=== PATIENT | female | born 1975 ===

== ENCOUNTER 2022-03-13 08:58 | Observation (INO) ==
[2022-03-13 11:09] LABS: Basophils % 0.3 % (0.0-0.8); Eosinophils % 0.2 % (0.00-10.9); Hematocrit 39.7 VOL% (35.7-47.0); Hemoglobin 13.8 GM/DL (12.0-16.0); Immature Granulocytes % 0.4 %; Immature Granulocytes Absolute 0.05 #; Lymphocytes # 2.3 10*3/uL (1.4-4.0); Lymphocytes % 20.5 % (21.3-54.2); Mean Corpuscular HGB Conc 34.8 GM/DL (32-36); Mean Corpuscular Volume 93.4 FL (87-102); Monocytes # 0.7 10*3/uL (0.11-0.8); Monocytes % 5.9 % (1.7-12.7); Neutrophils % 72.7 % (38.7-73.9); Platelet Count 330 T/CUMM (130-400); Red Blood Count 4.25 MC/CUMM (3.8-5.5); Red Cell Distribution Width 11.8 % (9.3-17.3); White Blood Count 11.3 T/CUMM (4-12)
[2022-03-13] MEDS ORDERED: ONDANSETRON 4 MG/2 ML VIAL IV PRN (11:16)
[2022-03-13] MEDS ORDERED: DEXTROSE 10% 250 ML BAG IV PRN ×2 (11:16→14:48)
[2022-03-13] MEDS ORDERED: GLUCAGON 1 MG VIAL IM PRN ×2 (11:16→14:46)
[2022-03-13 11:28] LABS: Calcium 8.9 MG/DL (8.5-10.1); Osmolality,Calculated 285.3 MOS/KG (273-304); Potassium 3.7 MMOL/L (3.5-5.1)
[2022-03-13 11:53] LABS: Barbiturates Screen,Urine Negative (Negative); Benzodiazepines Screen,Urine Negative (Negative); Cannabinoid Screen,Urine Negative (Negative); Opiate Screen,Urine Positive (Negative); Phencyclidine Screen,Urine Negative (Negative)
[2022-03-13 12:04] LABS: INR 0.9; Partial Thromboplastin Time 22.2 SECS (23.7-32.9)
[2022-03-13] MEDS: INSULIN LISPRO 100 UNIT/ML SUBCUT SCH ×3 (13:17→20:15)
[2022-03-13] MEDS ORDERED: MAGNESIUM SULF RIDER 4 GM/100 ML PREMIX IV ONE (15:00)
[2022-03-13] MEDS ORDERED: LORazepam 1 MG TABLET PO PRN (17:18)
[2022-03-13] MEDS ORDERED: THIAMINE INJ 100 MG, FOLIC ACID INJ 1 MG, MAGNESIUM SULF INJ 2 GM, MULTIVITAMIN INJ 10 ... IV ONE (17:19)
[2022-03-13] MEDS: SIMVASTATIN 40 MG TABLET PO SCH (20:15)
[2022-03-14] MEDS: LEVOTHYROXINE 50 MCG TABLET PO SCH (05:09)
[2022-03-14 08:06] LABS: Basophils % 0.3 % (0.0-0.8); Eosinophils # 0.1 10*3/uL (0.0-0.87); Eosinophils % 1.4 % (0.00-10.9); Hematocrit 38.8 VOL% (35.7-47.0); Hemoglobin 13.4 GM/DL (12.0-16.0); Immature Granulocytes % 0.5 %; Immature Granulocytes Absolute 0.04 #; Lymphocytes # 2.3 10*3/uL (1.4-4.0); Lymphocytes % 29.5 % (21.3-54.2); Mean Corpuscular HGB Conc 34.5 GM/DL (32-36); Mean Corpuscular Volume 94.2 FL (87-102); Mean Platelet Volume 9.9 FL (9.6-12.0); Monocytes # 0.6 10*3/uL (0.11-0.8); Monocytes % 7.5 % (1.7-12.7); Neutrophils % 60.8 % (38.7-73.9); Platelet Count 307 T/CUMM (130-400); Red Blood Count 4.12 MC/CUMM (3.8-5.5); Red Cell Distribution Width 11.6 % (9.3-17.3); White Blood Count 7.9 T/CUMM (4-12)
[2022-03-14 08:23] LABS: Albumin 3.3 G/DL (3.4-5.0); Bilirubin,Total 0.7 MG/DL (0.20-1.00); Calcium 8.9 MG/DL (8.5-10.1); Osmolality,Calculated 279.7 MOS/KG (273-304); Potassium 4.1 MMOL/L (3.5-5.1)
[2022-03-14] MEDS: lisinopriL 2.5 MG TABLET PO SCH (08:29)
[2022-03-14] MEDS: PANTOPRAZOLE 40 MG TABLET PO SCH (08:29)
[2022-03-14] MEDS: INSULIN LISPRO 100 UNIT/ML SUBCUT SCH ×4 (08:29→20:38)
[2022-03-14] MEDS ORDERED: fentaNYL 100 MCG/2 ML VIAL ONE ×2 (09:38→09:50)
[2022-03-14] MEDS ORDERED: ceFAZolin 1,000 MG VIAL ONE (10:09)
[2022-03-14] MEDS ORDERED: LIDOCAINE 2% 5 ML VIAL ONE (10:19)
[2022-03-14] MEDS ORDERED: SEVOFLURANE 1 UNIT/15 MINUTE INH ONE ×2 (10:19→11:25)
[2022-03-14] MEDS ORDERED: ONDANSETRON 4 MG/2 ML VIAL ONE (10:19)
[2022-03-14] MEDS ORDERED: propofoL 200 MG/20 ML VIAL IV ONE (10:19)
[2022-03-14] MEDS ORDERED: ROCURONIUM 50 MG/5 ML VIAL IV ONE (10:19)
[2022-03-14] MEDS ORDERED: GLYCOPYRROLATE 0.4 MG/2 ML VIAL ONE (10:56)
[2022-03-14] MEDS ORDERED: NEOSTIGMINE 10 MG/10 ML VIAL ONE (10:57)
[2022-03-14] MEDS ORDERED: HYDROmorphone 1 MG/1 ML SYRINGE ONE (11:04)
[2022-03-14] MEDS ORDERED: LACTATED RINGERS 2,000 ML IV ONE (11:08)
[2022-03-14] MEDS ORDERED: GLUCAGON 1 MG VIAL IM PRN (16:26)
[2022-03-14] MEDS ORDERED: DEXTROSE 50% 25 GM/50 ML VIAL IV PRN (16:26)
[2022-03-14] MEDS: SIMVASTATIN 40 MG TABLET PO SCH (20:38)
[2022-03-15 04:32] LABS: Basophils % 0.2 % (0.0-0.8); Eosinophils # 0.1 10*3/uL (0.0-0.87); Eosinophils % 0.8 % (0.00-10.9); Hematocrit 40.2 VOL% (35.7-47.0); Hemoglobin 13.2 GM/DL (12.0-16.0); Immature Granulocytes % 0.6 %; Immature Granulocytes Absolute 0.06 #; Lymphocytes # 1.6 10*3/uL (1.4-4.0); Lymphocytes % 15.1 % (21.3-54.2); Mean Corpuscular HGB Conc 32.8 GM/DL (32-36); Mean Corpuscular Volume 97.1 FL (87-102); Mean Platelet Volume 11.1 FL (9.6-12.0); Monocytes # 0.8 10*3/uL (0.11-0.8); Monocytes % 7.6 % (1.7-12.7); Neutrophils % 75.7 % (38.7-73.9); Platelet Count 293 T/CUMM (130-400); Red Blood Count 4.14 MC/CUMM (3.8-5.5); Red Cell Distribution Width 11.6 % (9.3-17.3); White Blood Count 10.6 T/CUMM (4-12)
[2022-03-15 04:52] LABS: Calcium 9.3 MG/DL (8.5-10.1); Osmolality,Calculated 272.1 MOS/KG (273-304); Potassium 3.7 MMOL/L (3.5-5.1)
[2022-03-15] MEDS: LEVOTHYROXINE 50 MCG TABLET PO SCH (05:59)
[2022-03-15 07:58] VITALS: BP 133/52
[2022-03-15] MEDS: INSULIN LISPRO 100 UNIT/ML SUBCUT SCH ×2 (08:16→12:22)
[2022-03-15] MEDS: lisinopriL 2.5 MG TABLET PO SCH (08:17)
[2022-03-15] MEDS: PANTOPRAZOLE 40 MG TABLET PO SCH (08:17)
[2022-03-15] MEDS ORDERED: MULTIVITAMIN (CENTRUM) TABLET PO SCH (09:00)
[2022-03-15] MEDS ORDERED: FOLIC ACID 1 MG TABLET PO SCH (09:00)
[2022-03-15] MEDS ORDERED: INSULIN GLARGINE 100 UNIT/ML SUBCUT SCH (21:00)
== END 2022-03-15 16:20 | disposition home health service (06) ==
LOC: N.EDINP 08:58 → N.ED 08:58 → N.EDINP 14:18 → N.3E 14:31
PROVIDERS: ADMIT Internal Medicine; ATTEND Internal Medicine